=== PATIENT | female | born 1970 | race American Indian/Alaskan Native ===

== ENCOUNTER → 2020-04-22 08:27 | Outpatient (BNVA) | payer BC, SELFPAY | PROVIDERS: Family Provider Family Medicine; PCP Family Medicine; Referring Provider Family Medicine; Visit Provider Specialist | DX: G43.711 Chronic migraine without aura, intractable, with status migrainosus (principal); G47.10 Hypersomnia, unspecified | CPT/HCPCS: 99204 ==

== ENCOUNTER → 2020-06-03 13:57 | Outpatient (BNVA) | payer BC, SELFPAY | PROVIDERS: Family Provider Family Medicine; PCP Family Medicine; Visit Provider Specialist | DX: G43.109 Migraine with aura, not intractable, without status migrainosus (principal); M79.7 Fibromyalgia | CPT/HCPCS: 64615; J0585 ==

== ENCOUNTER → 2020-09-02 13:29 | Outpatient (BNVA) | payer BC, SELFPAY | PROVIDERS: Family Provider Family Medicine; PCP Family Medicine; Visit Provider Specialist | DX: G43.711 Chronic migraine without aura, intractable, with status migrainosus (principal) | CPT/HCPCS: 64615; J0585 ==

== ENCOUNTER → 2021-03-10 09:20 | Outpatient (BNVA) | payer OTHER, SELFPAY | PROVIDERS: Family Provider Family Medicine; PCP Family Medicine; Visit Provider Specialist | DX: G43.711 Chronic migraine without aura, intractable, with status migrainosus (principal) | CPT/HCPCS: 64615; J0585 ==

== ENCOUNTER 2024-04-24 18:22 | Emergency (ER) | payer OTHER, SELFPAY ==
[2024-04-24 18:37] VITALS: BP 156/96; PULSE 85; RESP 16; TEMP 36.8; O2SAT 97
--- NOTE | 2024-04-24 19:09 | W.ED.WOUNDLC ---
HPI - Wound/Laceration General: Chief Complaint: Wound/Laceration Stated Complaint: facial absess swellin diabetic Time Seen by Provider: 04/24/24 19:00 History of Present Illness: Patient comes in today with complaints of left facial swelling and tenderness. Patient had a cyst to her left facial cheek that closed up 2 days ago and since then has had cause increased redness and swelling to the face. Patient reports that she has a history of cystic acne. Review of Systems General: Reports: 10 or more systems reviewed and unremarkable except in HPI and below PFSH ED PFSH: Medical History Degenerative lumbar disc Fibromyalgia Essential hypertension Migraine aura without headache Social History Smoking and tobacco/nicotine status: never used tobacco/nicotine Alcohol intake: current Substance/Drug Use: never Physical Exam Const: COMMON NORMALS: alert HENMT: COMMON NORMALS: normocephalic HEAD & SCALP: normocephalic FACE & SINUS: other (Redness and swelling left facial cheek, palpable abscess) Neck/C-Spine: COMMON NORMALS: full ROM Chest: COMMONS NORMALS: normal inspection of the chest Resp: COMMON NORMALS: normal respiratory effort Extremity: COMMON NORMALS: normal to inspection Neuro: SENSORIUM/ORIENTATION: Yes alert Skin: NARRATIVE SKIN EXAM: Abscess left facial cheek Procedures Abscess I/D Site: face Side (if applicable): left Local Anesthetic: lidocaine 2% and with epi Amount of anesthesia used (mL): 3 Technique: incised with #11 blade Amount of fluid expressed (mL): 1 Irrigation: No Packing used?: plain Complications: bleeding Course Vital Signs: Vital signs: Vital Signs Temperature 98.3 F 04/24/24 18:37 Pulse Rate 85 04/24/24 18:37 Respiratory Rate 16 04/24/24 18:37 Blood Pressure 156/96 04/24/24 18:37 Pulse Oximetry 97 04/24/24 18:37 MDM - Wound/Laceration Medical Decision Making 53-year-old female comes in today with abscess to left face. Pupils are equal and reactive. Patient appears nontoxic. Patient appears no acute distress. Differential diagnosis includes not limited to abscess, cellulitis, periapical abscess. Under local anesthetic a incision was made into the abscess and expressed no recent discharge. Approximately 1 mL. Patient then had some bleeding that was controlled with pressure. 1 inch of quarter inch packing gauze was placed into the wound to maintain opening. The loculation did occur for the wound. Reviewed exam with patient with recommendations for further treatment with antibiotics and need for follow-up or return to the ER. Patient reported understanding agreed to plan. Lab Data 04/24/24 19:20 04/24/24 19:20 Laboratory Results WBC 10.63 10^3/uL (3.29-11.43) 04/24/24 19:20 RBC 4.84 10^6/uL (3.85-5.65) 04/24/24 19:20 Hgb 13.80 g/dL (11.27-16.99) 04/24/24 19:20 Hct 42.6 % (36-47) 04/24/24 19:20 MCV 88.0 fl (85-98) 04/24/24 19:20 MCH 28.5 pg (27-33) 04/24/24 19:20 MCHC 32.4 g/dL (30-55) 04/24/24 19:20 RDW 13.7 % (12.1-15.1) 04/24/24 19:20 Plt Count 261 10^3/cmm (157-399) 04/24/24 19:20 MPV 11.5 fL (7.4-10.4) H 04/24/24 19:20 Neut % (Auto) 67.3 % 04/24/24 19:20 Lymph % (Auto) 22.7 % 04/24/24 19:20 [place] % (Auto) 7.8 % 04/24/24 19:20 Eos % (Auto) 1.3 % 04/24/24 19:20 Baso % (Auto) 0.5 % 04/24/24 19:20 Neut # (Auto) 7.16 10^3/uL (1.8-7.7) 04/24/24 19:20 Lymph # (Auto) 2.4 10^3/uL (0.8-4.8) 04/24/24 19:20 [place] # (Auto) 0.8 10^3/uL (0.2-0.9) 04/24/24 19:20 Eos # (Auto) 0.1 10^3/uL (0.0-0.8) 04/24/24 19:20 Baso # (Auto) 0.1 10^3/uL (0.0-0.1) 04/24/24 19:20 Nucleated RBC % (auto) 0 % 04/24/24 19:20 Nucleated RBCs # 0.0 /100WBC 04/24/24 19:20 Sodium 142 mmol/L (136-145) 04/24/24 19:20 Potassium 3.5 mmol/L (3.5-5.1) 04/24/24 19:20 Chloride 108 mmol/L (98-107) H 04/24/24 19:20 Carbon Dioxide 22 mmol/L (22-29) 04/24/24 19:20 Anion Gap 15.5 (5-19) 04/24/24 19:20 BUN 11 mg/dL (6-20) 04/24/24 19:20 Creatinine 0.7 mg/dL (0.5-0.9) 04/24/24 19:20 GFR Calculation 87.2 mL/min (90-130) L 04/24/24 19:20 Glucose 150 mg/dL (65-115) H 04/24/24 19:20 Calculated Osmolality 296 mOsm/kg (285-295) H 04/24/24 19:20 Lactic Acid 1.5 mmol/L (0.5-2.2) 04/24/24 19:20 Calcium 9.6 mg/dL (8.5-10.5) 04/24/24 19:20 Total Bilirubin 0.3 mg/dL (0.15-1.2) 04/24/24 19:20 AST 38 U/L (0-32) H 04/24/24 19:20 ALT 38 U/L (0-33) H 04/24/24 19:20 Alkaline Phosphatase 73 U/L (35-105) 04/24/24 19:20 Total Protein 8.0 g/dL (6.6-8.7) 04/24/24 19:20 Albumin 4.4 g/dL (3.5-5.2) 04/24/24 19:20 Globulin 3.6 g/dL (1.3-4.6) 04/24/24 19:20 No radiology studies performed this visit Discharge Plan Discharge Patient Disposition: Home Clinical Impression: Cellulitis and abscess of face Condition: Stable Prescriptions: New clindamycin HCl 300 mg capsule 300 mg PO Q8H 10 Days Qty: 30 0RF No Action duloxetine [Cymbalta] 60 mg capsule,delayed release(DR/EC) 60 mg PO DAILY ondansetron HCl [Zofran] 4 mg tablet 4 mg PO Q8H PRN (Reason: nausea and vomiting) Qty: 30 0RF albuterol sulfate [Ventolin HFA] 90 mcg/actuation HFA aerosol inhaler 2 puff INHALATION Q6H PRN fluticasone propionate [Flonase Allergy Relief] 50 mcg/actuation spray,suspension 1 spray INTRANASAL DAILY Rx Instructions: administer into each nostril Dulera 100-5 mcg/actuation HFA aerosol inhaler 2 puff INHALATION BID baclofen 10 mg tablet 10 mg PO TID metoprolol tartrate 25 mg tablet 25 mg PO DAILY Qty: 60 1RF Rx Instructions: begin 1/2 tablet twice daily for 8 to 10 days, then increase to whole tablet twice daily clonidine HCl 0.1 mg tablet 0.1 mg PO BID PRN celecoxib [Celebrex] 200 mg capsule 200 mg PO BID pregabalin 75 mg capsule 75 mg PO DAILY triamcinolone acetonide 0.1 % ointment 1 applic topical DAILY Qty: 80 1RF desvenlafaxine succinate [Pristiq] 50 mg tablet extended release 24 hr 50 mg PO DAILY Emgality Syringe 120 mg/mL syringe 240 mg SUBCUT ONCE Qty: 2 0RF Rx Instructions: loading dose Emgality Syringe 120 mg/mL syringe 120 mg SUBCUT ONCE Qty: 1 5RF amoxicillin-pot clavulanate 875-125 mg tablet 1 tab PO BID 7 Days Qty: 14 0RF sumatriptan succinate 100 mg tablet 100 mg PO ONCE Qty: 27 1RF Discharge Orders: Discharge ED (Routine); Ordered 04/24/24 Ordered By: Bairon Renteria Referrals: Geoffrey Lomeli MD [Primary Care Provider] - Discharge Diet: Usual diet Discharge Activity: Increase activity as tolerated Patient Instructions: Abscess Incision and Drainage (DC) Activity Restrictions/Additional Instructions: You may use warm compresses to the face to help with swelling and discomfort. Use acetaminophen and/or ibuprofen for further pain relief. Ice packs may also help with pain. Take oral antibiotic clindamycin 300 mg 3 times a day for the next 10 days. Remove the wick from the wound in 2 to 3 days. If the wick comes out before that time leave it out. Return to the ER in 3 days if you are unable to remove the wick. Return to ER for worsening symptoms such as fever greater than 100.4, inability to hold fluids down, or new concerns. Coding Level of Care Code ED Electronic Security Technician for [employer]
[2024-04-24 19:35] LABS: Basophils # 0.1 10^3/uL (0.0-0.1); Basophils % 0.5 %; Eosinophils # 0.1 10^3/uL (0.0-0.8); Eosinophils % 1.3 %; Hematocrit 42.6 % (36-47); Lymphocytes # 2.4 10^3/uL (0.8-4.8); Lymphocytes % 22.7 %; Mean Corpuscular HGB Conc 32.4 g/dL (30-55); Mean Corpuscular Hemoglobin 28.5 pg (27-33); Mean Platelet Volume 11.5 fL (7.4-10.4); Monocytes # 0.8 10^3/uL (0.2-0.9); Monocytes % 7.8 %; Neutrophils # 7.16 10^3/uL (1.8-7.7); Neutrophils % 67.3 %; Nucleated Red Blood Cells % 0 %; Platelet Count 261 10^3/cmm (157-399); Red Blood Count 4.84 10^6/uL (3.85-5.65); Red Cell Distribution Width 13.7 % (12.1-15.1); White Blood Count 10.63 10^3/uL (3.29-11.43)
[2024-04-24 19:53] LABS: Alanine Aminotransferase 38 U/L (0-33); Albumin Level 4.4 g/dL (3.5-5.2); Alkaline Phosphatase 73 U/L (35-105); Anion Gap 15.5 (5-19); Aspartate Amino Transferase 38 U/L (0-32); Blood Urea Nitrogen 11 mg/dL (6-20); Calcium 9.6 mg/dL (8.5-10.5); Carbon Dioxide 22 mmol/L (22-29); Chloride 108 mmol/L (98-107); Creatinine Clr Calc Pharmacy 101.3334; Globulin 3.6 g/dL (1.3-4.6); Glomerular Filtration Rate 87.2 mL/min (90-130); Glucose 150 mg/dL (65-115); Lactic Sepsis W/Reflex 1.5 mmol/L (0.5-2.2); Osmolality Calculated 296 mOsm/kg (285-295); Potassium 3.5 mmol/L (3.5-5.1); Sodium 142 mmol/L (136-145); Total Bilirubin 0.3 mg/dL (0.15-1.2)
[2024-04-24] MEDS: ketorolac 30 mg/mL INJ 15 MG IVP (20:12)
[2024-04-24] MEDS: ondansetron 2 mg/ML SDV 2 mL 4 MG IVP (20:12)
[2024-04-24] MEDS: sodium chloride 0.9% 500 ML 999 ML IV (20:13)
[2024-04-24] MEDS: clindamycin 900 MG/50 ML PREMIX 100 MG IV (20:13)
[2024-04-24 21:18] VITALS: BP 148/94; PULSE 81; RESP 16; TEMP 36.8; O2SAT 98
== END 2024-04-24 21:05 | disposition home or self-care (01) ==
PROVIDERS: Emergency Provider Nurse Practitioner Family; PCP Family Medicine
DX: L03.211 Cellulitis of face (principal); I10 Essential (primary) hypertension; Z79.899 Other long term (current) drug therapy
CPT/HCPCS: 10060; 36415; 80053; 83605; 85025; 87040; 96365; 96375; 99284; J1885; J2405; J3490; J7040

== ENCOUNTER → 2024-06-10 10:32 | Outpatient (BNVA) | payer OTHER, SELFPAY | PROVIDERS: PCP Family Medicine; Visit Provider Family Medicine | DX: M35.3 Polymyalgia rheumatica (principal) | CPT/HCPCS: 85651; 86140 ==

== ENCOUNTER 2024-06-12 16:55 | Outpatient (CLI) | payer OTHER, SELFPAY ==
--- NOTE | 2024-06-12 16:59 | XR_ITS ---
WS: [email or web address] Exam: XR lumbar spine 2-3V* [id number] Date/Time of Exam: 06/12/2024 5:08 PM Reason For Exam: persistant low back pain No fracture or dislocation. Slight narrowing of the L2-3 and L4-5 discs. Mild spondylosis. Facet arth ropathy at all levels. Mild levoscoliosis. Again noted is T12 upper plate compression fracture as pre viously described. XR/XR lumbar spine 2-3V* [id number] IMPRESSION: 1. Degenerative changes and mild levoscoliosis. 2. No fracture or malalignment.
--- NOTE | 2024-06-12 16:59 | XR_ITS ---
WS: [email or web address] Exam: XR thoracic spine 2V [id number] Date/Time of Exam: 06/12/2024 5:08 PM Reason For Exam: persistant back and left sided pain There is a compression fracture of the upper plate of T12 with about 30% loss of vertebral height. Fr acture age indeterminant but may be old. No other fractures. Minimal spondylosis. Paraspinal soft tis sues are unremarkable. Minimal upper thoracic scoliosis. XR/XR thoracic spine 2V [id number] IMPRESSION: 1. Compression fracture of the upper plate of T12 with about 30% loss of verteb ral height. No posterior displacement. Age is indeterminant but the appearance is most suggestive of an old fracture. 2. Mild degenerative changes and slight scoliosis.
== END 2024-06-12 16:56 | disposition home or self-care (01) ==
LOC: RAD 16:56
PROVIDERS: PCP Family Medicine; Visit Provider Family Medicine
DX: S22.080A Wedge compression fracture of T11-T12 vertebra, initial encounter for closed fracture (principal); M51.9 Unspecified thoracic, thoracolumbar and lumbosacral intervertebral disc disorder; X58.XXXA Exposure to other specified factors, initial encounter; M47.896 Other spondylosis, lumbar region
CPT/HCPCS: 72070; 72100

== ENCOUNTER → 2024-12-26 13:01 | Outpatient (BNVA) | payer MEDICAID, SELFPAY | PROVIDERS: PCP Family Medicine; Visit Provider Specialist | DX: G43.711 Chronic migraine without aura, intractable, with status migrainosus (principal) | CPT/HCPCS: 64615; J0585; J9999 ==

== ENCOUNTER 2025-04-01 17:03 | Outpatient (CLI) | payer MEDICAID, SELFPAY ==
--- NOTE | 2025-04-01 17:00 | CTR_ITS ---
PROCEDURE INFORMATION: Exam: CT Thoracic Spine Without Contrast Exam date and time: 04/01/2025 5:11 PM Age: 54 years old Clinical indication: Pain in thoracic spine; Prior surgery; Surgery date: 6+ months; Surgery type: Gb; Increased back pain at location of prior compression FX. PT states 2 years ago she fell on ice fracturing her back. ; Additional info: Increased back pain at location prior compression frx TECHNIQUE: Imaging protocol: Computed tomography of the thoracic spine without contrast. Radiation optimization: All CT scans at this facility use at least one of these dose optimization techniques: automated exposure control; mA and/or kV adjustment per patient size (includes targeted exams where dose is matched to clinical indication); or iterative reconstruction. COMPARISON: CR XR thoracic spine 2V [id number] 12/06/2024 17:05 RADIATION DOSE METRICS: Total DLP (mGy-cm): 496.19 FINDINGS: Bones/joints: No acute fracture. Note is made of what appears to be an anterosuperior endplate compression fracture of T12 on the order of 30% as described previously. A central Schmorl's node is noted at this level. Okay Minimal convexity of the thoracic spine being directed to the right on the coronal images and centered in the mid to lower region. Sagittal images demonstrate relative alignment. A number of scattered mild right anterolateral osteoarthritic degenerative spurring like changes are seen along the mid to lower thoracic spine and similar to the earlier plain film series. T1-T2: No significant disc bulge or herniation. No severe spinal canal stenosis. No significant neural foraminal narrowing. T2-T3: No significant disc bulge or herniation. No severe spinal canal stenosis. No significant neural foraminal narrowing. T3-T4: No significant disc bulge or herniation. No severe spinal canal stenosis. No significant neural foraminal narrowing. T4-T5: No significant disc bulge or herniation. No severe spinal canal stenosis. No significant neural foraminal narrowing. T5-T6: No significant disc bulge or herniation. No severe spinal canal stenosis. No significant neural foraminal narrowing. T6-T7: No significant disc bulge or herniation. No severe spinal canal stenosis. No significant neural foraminal narrowing. T7-T8: No significant disc bulge or herniation. No severe spinal canal stenosis. No significant neural foraminal narrowing. T8-T9: No significant disc bulge or herniation. No severe spinal canal stenosis. No significant neural foraminal narrowing. T9-T10: No significant disc bulge or herniation. No severe spinal canal stenosis. No significant neural foraminal narrowing. T10-T11: No significant disc bulge or herniation. No severe spinal canal stenosis. No significant neural foraminal narrowing. Minimal central spurring is noted without significant effacement of the thecal sac. T11-T12: Minimal broad-based posterosuperior vertebral margin bulging is noted minimally effacing the thecal sac. The canal and foramina appear to be intact/patent. T12-L1: Minimal central posterior spurring with patency of the canal and neural foramina. Soft tissues: The CT scanogram demonstrates surgical clips in the gallbladder fossa. CT/CT thoracic spin wo con* [id number] IMPRESSION: 1. No acute osseous thoracic spine CT findings; however, if further discrimination is needed an MRI is suggested for your consideration. 2. T12 remote anterosuperior compression fracture similar to prior plain film series.
== END 2025-04-01 17:04 | disposition home or self-care (01) ==
LOC: RAD 17:05
PROVIDERS: PCP Family Medicine; Visit Provider Family Medicine
DX: S22.080A Wedge compression fracture of T11-T12 vertebra, initial encounter for closed fracture (principal); X58.XXXA Exposure to other specified factors, initial encounter; M51.44 Schmorl's nodes, thoracic region; M47.894 Other spondylosis, thoracic region
CPT/HCPCS: 72128

== ENCOUNTER → 2025-04-21 10:55 | Outpatient (BNVA) | payer MEDICAID, SELFPAY | PROVIDERS: PCP Family Medicine; Visit Provider Family Medicine | DX: G51.39 Clonic hemifacial spasm, unspecified (principal); M54.50 Low back pain, unspecified; G89.11 Acute pain due to trauma; G43.711 Chronic migraine without aura, intractable, with status migrainosus; M79.7 Fibromyalgia; I10 Essential (primary) hypertension | CPT/HCPCS: 85025 ==